=== PATIENT | female | born 1955 | race Caucasian/White ===

== ENCOUNTER 2016-10-27 08:23 | Emergency (ER) | payer OTHER ==
[2016-10-27] MEDS ORDERED: Lidocaine 1% MPF* 2 ML VIAL ONE (08:47)
[2016-10-27 09:04] VITALS: BP 132/98
--- NOTE | 2016-10-27 09:12 | UC ---
Skin Complaint HPI - HPI Summary HPI Summary: PATIENT PRESENTS TO WITH A RETAINED FOREIGN BODY IN THE RIGHT PALM OF HAND SINCE FRIDAY. SHE NOTES TO SOME REDNESS AND SWELLING AROUND THE AREA WHICH HAS GOTTEN WORSE OVER THE LAST FEW DAYS. THE FOREIGN BODY IS A TWIG FROM [place]. SHE WAS ABLE TO PULL IT OUT, BUT THINKS THERE MAY BE SOME LEFT SINCE IT HAS BEEN CREATING PAIN AND INFLAMMATION. SHE HAS BEEN USING ANTIBIOTIC OINTMENT FOR RELIEF. NO STREAKING, DRAINAGE OR PUS NOTED. PATIENT IS OTHERWISE HEALTHY AND TAKES NO MEDICATIONS. TETANUS UTD. - History of Current Complaint Chief Complaint: UCWounds Time Seen by Provider: 10/27/16 08:35 Stated Complaint: FB IN HAND Hx Obtained From: Patient ?: No Onset/Duration: Sudden Onset Skin Exposure Onset/Duration: Days Ago Timing: Constant Onset Severity: Mild Current Severity: Mild Pain Intensity: 1 Pain Scale Used: 0-10 Numeric Location: Hand (Right) Character: Swelling, Pain, Redness, Raised Aggravating: Nothing Alleviating: Nothing Associated Signs & Symptoms: Positive: Negative Related History: Foreign Body - Allergy/Home Medications Allergies/Adverse Reactions: Allergies Allergy/AdvReac Type Severity Reaction Status Date / Time Sulfa Antibiotics Allergy Unknown Verified 10/27/16 08:32 Reaction Details Review of Systems Constitutional: Negative Skin: Other - REDNESS, SWELLING Eyes: Negative Respiratory: Negative Cardiovascular: Negative Musculoskeletal: Negative Neurological: Negative Psychological: Negative All Other Systems Reviewed And Are Negative: Yes PMH/Surg Hx/FS Hx/Imm Hx Previously Healthy: Yes Respiratory History Of: Reports: Asthma, Bronchitis - DX ACUTE BRONCHITIS 3DAYS AGO Cancer History Of: Denies: Breast Cancer - Surgical History Surgical History: Yes Surgery Procedure, Year, and Place: hernia repair. tubal ligation - Family History Known Family History: Positive: Unknown - Social History Occupation: Unemployed Lives: With Family Alcohol Use: Daily Substance Use Type: None Smoking Status (MU): Never Smoked Tobacco Physical Exam Triage Information Reviewed: Yes Appearance: Well-Appearing, No Pain Distress, Well-Nourished Vital Signs: Initial Vital Signs Temp 97.6 F 10/27/16 08:27 Pulse 76 10/27/16 08:27 Resp 20 10/27/16 08:27 BP 152/98 10/27/16 08:27 Pulse Ox 99 10/27/16 08:27 Vital Signs Reviewed: Yes Eye Exam: Normal Eyes: Positive: Conjunctiva Clear Neck exam: Normal Neck: Positive: Supple, No Lymphadenopathy Respiratory Exam: Normal Respiratory: Positive: Chest non-tender, Lungs clear Cardiovascular Exam: Normal Musculoskeletal Exam: Normal Neurological Exam: Normal Neurological: Positive: Alert Psychological Exam: Normal Psychological: Positive: Normal Response To Family, Age Appropriate Behavior Skin: Positive: Other - ERYTHEMATOUS, SWELLING OVER RIGHT PALM OF HAND MEASURING .5CM IN DIAMETER FROM A LIKELY RETAINED FOREIGN BODY. Course/Dx - Course Course Of Treatment: USED 1% LIDOCAINE TO NUMB AREA. 11" BLADE USED TO MAKE A SMALL .25CM INCISION ACROSS AREA OF SWELLING. SMALL ORGANIC BROWN MATERIAL DISCHARGED RESEMBLING SLIVER. GAUZE WRAPPED. ENCOURAGED ANTIBIOTIC OINTMENT TO AREA AND RETURN IF SIGNS OF INFECTION. FB IS ORGANIC AND UNLIKELY TO BE VISUALIZED UNDER XRAY. PATIENT IS UTD ON TETANUS. PATIENT WILL FOLLOW UP WITH PCP ON FRIDAY. - Differential Diagnoses - Skin Complaint Differential Diagnoses: Cellulitis, Foreign Body, Tick Born Illness - Diagnoses Provider Diagnoses: FOREIGN BODY IN SOFT TISSUE Discharge - Discharge Plan Condition: Stable Disposition: HOME Patient Education Materials: Soft Tissue Foreign Body (ED) Referrals: Deepika Alexander MD [Primary Care Provider] - Additional Instructions: If you develop signs of infection such as redness around the wound, drainage, pus like material, red streaking moving away from the wound or you develop a fever, come back to ED. Follow up with PCP. Keep wound clean and wrapped today. You may take off the bandage tonight or tomorrow morning and replace with regular bandaid. Use antibiotic ointment. If any foreign body remains, your body will likely push it out in a few days. Images Hands: 1 - REDNESS, SWELLING - NO DRAINAGE OR STREAKING
== END 2016-10-27 09:05 | disposition home or self-care (01) ==
LOC: UCEAST 08:23
DX: M79.5 Residual foreign body in soft tissue (principal); J45.909 Unspecified asthma, uncomplicated; Z87.09 Personal history of other diseases of the respiratory system; Z88.2 Allergy status to sulfonamides
CPT/HCPCS: 99211; G0463

== ENCOUNTER 2017-06-19 07:23 | Day surgery (SDC) | payer OTHER ==
[~2017-06-19 07:23] MED LIST: Buffered Lidocaine 0.9% SYRIN* 5 ML/SYR SYRINGE INTRADERM ONE
[2017-06-19] MEDS ORDERED: Buffered Lidocaine 0.9% SYRIN* 5 ML/SYR SYRINGE ONE (07:33)
[2017-06-19] MEDS ORDERED: ceFAZolin 2 GM PREMIX (*) 2 GM/50 ML BAG IVPB ONE (07:33)
[2017-06-19] MEDS ORDERED: Ketorolac INJ* 30 MG/ML 1 ML VIAL ONE (07:33)
[2017-06-19] MEDS ORDERED: Midazolam* 1 MG/ML 2 ML VIAL (2 MG) ONE (08:27)
[2017-06-19] MEDS ORDERED: fentaNYL* 50 MCG/ML 2 ML VIAL (100 MCG VIAL) ONE (08:28)
[2017-06-19] MEDS ORDERED: Bupivacaine 0.25% SDV* 30 ML ONE ×2 (08:45→08:47)
[2017-06-19] MEDS ORDERED: Lidocaine 1% INJ* 10 MG/ML 30 ML SDV ONE (08:46)
[2017-06-19] MEDS ORDERED: Bupivacaine 0.5% SDV PF* 30 ML VIAL ONE (08:47)
[2017-06-19] MEDS ORDERED: Propofol* 10 MG/ML 20 ML BTL IV PUSH ONE (09:21)
[2017-06-19] MEDS ORDERED: Phenylephrine IV* 40 MCG/ML 10 ML SYRINGE ONE (09:21)
[2017-06-19] MEDS ORDERED: Acetaminophen TAB* 325 MG PO PRN (09:44)
[2017-06-19] MEDS ORDERED: Lidocaine 2% PF * 5 ML VIAL ONE (09:49)
[2017-06-19 10:45] VITALS: BP 130/93
--- NOTE | 2017-06-19 15:24 | OP ---
CC: Adonis Eng MD; Deepika Alexander MD OPERATIVE REPORT: DATE OF OPERATION: 06/19/17 DATE OF : 53 SURGEON: Adonis Eng MD [employer] SUPERVISOR: None. ANESTHESIOLOGIST: Dr. Mcclendon. ANESTHESIA: LMAC anesthesia. PRE-OP DIAGNOSIS: Umbilical hernia. POST-OP DIAGNOSIS: Umbilical hernia with ventral hernia. OPERATIVE PROCEDURE: Open repair of umbilical and ventral hernias. DESCRIPTION OF PROCEDURE: The patient was supine on the operative table. After adequate intravenous sedation, compression stockings, Pedro Hugger warmer, and intravenous antibiotics, the abdomen was pr epped with antiseptic, draped in a sterile fashion. Local infiltrative anesthesia was administered. A curvilinear incision was created at the infraumbilical fold. Dissection was carried down to an um bilical hernia defect, which is barely 1 cm across. Additional exploration identified a separate severino tral hernia. This was about 2 cm lateral and 1 cm inferior to the umbilicus and had a defect of abou t 1.5 cm. Both of these were reduced and the edges were cleaned up and closure was accomplished with a single running suture of 0 Vicryl followed by 3-0 Vicryl to tack down the umbilical skin and close the subcutaneum and 5-0 Vicryl for the final skin closure followed by Steri-Strips. She tolerated t he procedure well, was brought to Recovery in good condition. There are no complications, no drains, no pathologic specimens. Sponge and instrument counts were correct. Estimated blood loss is 10 mL. [id number]/[facility] #: [id number]
== END 2017-06-19 10:50 | disposition home or self-care (01) ==
LOC: OR 07:23
PROVIDERS: ATTEND Surgery
DX: K42.9 Umbilical hernia without obstruction or gangrene (principal); K43.9 Ventral hernia without obstruction or gangrene; K21.9 Gastro-esophageal reflux disease without esophagitis; M85.80 Other specified disorders of bone density and structure, unspecified site; Z87.891 Personal history of nicotine dependence; Z88.2 Allergy status to sulfonamides; Z88.8 Allergy status to other drugs, medicaments and biological substances
CPT/HCPCS: J0690; J1885; J2250; J2704; J3010